=== PATIENT | female | born 1960 | race Caucasian/White ===

== ENCOUNTER 2023-05-13 09:01 | Outpatient (RCR) | payer OTHER, SELFPAY | END 2023-05-13 23:59 | disposition home or self-care (01) | LOC: RPT 09:01 | PROVIDERS: ATTENDING PHYSICIAN Surgery; PRIMARYCARE PHYSICIAN Nurse Practitioner Family | DX: I97.2 Postmastectomy lymphedema syndrome (principal); D05.92 Unspecified type of carcinoma in situ of left breast | CPT/HCPCS: 97110; 97140; 97162; 97535 ==

== ENCOUNTER → 2023-05-30 12:23 | Outpatient (REF) | payer OTHER, SELFPAY | LOC: RAD 12:23 | PROVIDERS: ATTENDING PHYSICIAN Student in an Organized Health Care Education/Training Program; FAMILY PHYSICIAN Internal Medicine Geriatric Medicine | DX: S67.01XA Crushing injury of right thumb, initial encounter (principal) | CPT/HCPCS: 73140 ==

== ENCOUNTER 2023-06-13 16:55 | Outpatient (RCR) | payer OTHER, SELFPAY | END 2023-06-13 23:59 | disposition home or self-care (01) | LOC: RPT 16:55 | PROVIDERS: ATTENDING PHYSICIAN Surgery; PRIMARYCARE PHYSICIAN Nurse Practitioner Family | DX: I97.2 Postmastectomy lymphedema syndrome (principal); D05.92 Unspecified type of carcinoma in situ of left breast; Z73.6 Limitation of activities due to disability; Z90.12 Acquired absence of left breast and nipple | CPT/HCPCS: 97110; 97140; 97535 ==

== ENCOUNTER 2023-07-03 18:07 | Outpatient (RCR) | payer OTHER, SELFPAY | END 2023-07-03 23:59 | disposition home or self-care (01) | LOC: RPT 18:07 | PROVIDERS: ATTENDING PHYSICIAN Surgery; PRIMARYCARE PHYSICIAN Nurse Practitioner Family | DX: I97.2 Postmastectomy lymphedema syndrome (principal); D05.92 Unspecified type of carcinoma in situ of left breast; Z73.6 Limitation of activities due to disability | CPT/HCPCS: 97110; 97140; 97535 ==

== ENCOUNTER 2023-08-08 11:52 | Outpatient (RCR) | payer OTHER, SELFPAY | END 2023-08-08 12:55 | disposition home or self-care (01) | LOC: RPT 11:52 | PROVIDERS: ATTENDING PHYSICIAN Surgery; PRIMARYCARE PHYSICIAN Nurse Practitioner Family | DX: I97.2 Postmastectomy lymphedema syndrome (principal); D05.92 Unspecified type of carcinoma in situ of left breast; Z73.6 Limitation of activities due to disability | CPT/HCPCS: 97110; 97112; 97140; 97535 ==

== ENCOUNTER → 2023-11-22 14:58 | Outpatient (REF) | payer OTHER, SELFPAY | LOC: WDC 14:58 | PROVIDERS: ATTENDING PHYSICIAN Surgery; FAMILY PHYSICIAN Internal Medicine Geriatric Medicine | DX: Z12.31 Encounter for screening mammogram for malignant neoplasm of breast (principal) | CPT/HCPCS: 77063; 77067 ==

== ENCOUNTER → 2024-03-26 12:54 | Outpatient (REF) | payer OTHER, SELFPAY | LOC: WDC 12:54 | PROVIDERS: ATTENDING PHYSICIAN Surgery; FAMILY PHYSICIAN Internal Medicine Geriatric Medicine | DX: R92.2 Inconclusive mammogram (principal) | CPT/HCPCS: 76641 ==

== ENCOUNTER 2024-05-12 09:57 | Outpatient (RCR) | payer OTHER, SELFPAY | END 2024-05-12 23:59 | disposition home or self-care (01) | LOC: RPT 09:57 | PROVIDERS: ATTENDING PHYSICIAN Surgery; FAMILY PHYSICIAN Nurse Practitioner Family | DX: I97.2 Postmastectomy lymphedema syndrome (principal); D05.12 Intraductal carcinoma in situ of left breast; L90.5 Scar conditions and fibrosis of skin; Z73.6 Limitation of activities due to disability; Z90.12 Acquired absence of left breast and nipple | CPT/HCPCS: 97110; 97140; 97162; 97530 ==

== ENCOUNTER 2024-06-10 09:56 | Outpatient (RCR) | payer OTHER, SELFPAY | END 2024-06-10 23:59 | disposition home or self-care (01) | LOC: RPT 09:56 | PROVIDERS: ATTENDING PHYSICIAN Surgery; FAMILY PHYSICIAN Nurse Practitioner Family | DX: I97.2 Postmastectomy lymphedema syndrome (principal); D05.12 Intraductal carcinoma in situ of left breast; L90.5 Scar conditions and fibrosis of skin; Z73.6 Limitation of activities due to disability; Z90.12 Acquired absence of left breast and nipple | CPT/HCPCS: 97110; 97140; 97530 ==

== ENCOUNTER 2024-07-07 13:53 | Outpatient (RCR) | payer OTHER, SELFPAY | END 2024-07-07 23:59 | disposition home or self-care (01) | LOC: RPT 13:53 | PROVIDERS: ATTENDING PHYSICIAN Surgery; FAMILY PHYSICIAN Nurse Practitioner Family | DX: I97.2 Postmastectomy lymphedema syndrome (principal); D05.12 Intraductal carcinoma in situ of left breast; L90.5 Scar conditions and fibrosis of skin; Z73.6 Limitation of activities due to disability; Z90.12 Acquired absence of left breast and nipple | CPT/HCPCS: 97140; 97530 ==

== ENCOUNTER 2024-07-24 09:00 | Outpatient (RCR) | payer OTHER, SELFPAY | END 2024-07-24 10:53 | disposition home or self-care (01) | LOC: RPT 09:00 | PROVIDERS: ATTENDING PHYSICIAN Surgery; FAMILY PHYSICIAN Nurse Practitioner Family | DX: I97.2 Postmastectomy lymphedema syndrome (principal); D05.12 Intraductal carcinoma in situ of left breast; L90.5 Scar conditions and fibrosis of skin; Z73.6 Limitation of activities due to disability; Z90.12 Acquired absence of left breast and nipple | CPT/HCPCS: 97110; 97140; 97530 ==

== ENCOUNTER → 2024-12-04 12:29 | Outpatient (REF) | payer BC, SELFPAY | LOC: WDC 12:29 | PROVIDERS: ATTENDING PHYSICIAN Surgery; FAMILY PHYSICIAN Internal Medicine Geriatric Medicine | DX: Z12.31 Encounter for screening mammogram for malignant neoplasm of breast (principal) | CPT/HCPCS: 77063; 77067 ==